=== PATIENT | male | born 1950 ===

== ENCOUNTER 2016-07-04 11:22 | Day surgery (SDC) | payer OTHER ==
[~2016-07-04] VITALS: Ht 170.2 cm; Wt 122.0 kg
[~2016-07-04 11:22] MED LIST: GABAPENTIN300 MG PO; LISINOPRIL20 MG PO; LOVASTATIN40 MG PO; METFORMIN HCL500 MG PO; TRAZODONE HCL50 MG PO
--- NOTE | 2016-07-04 13:53 | Provider's Discharge Care Plan ---
Problem, Goal, Plan Problem List 1. S/P colonoscopy Goals: Screening Instructions: Follow up as needed, Take meds as directed, high fiber diet
--- NOTE | 2016-07-04 13:53 | Provider's Discharge Care Plan ---
Problem, Goal, Plan Problem List 1. S/P colonoscopy Goals: Screening Instructions: Follow up as needed, Take meds as directed, high fiber diet
--- NOTE | 2016-07-04 13:57 | Operative Report ---
Operative Report Date of Surgery: 07/04/16 Preoperate Diagnosis: screening colonoscopy Postoperative Diagnosis: sigmoid diverticulosis Surgeon: Eduardo Lau MD [employer] Surgeon: none Procedure Performed: Screening colonoscopy Anesthesia: T DEZ Indications: 65-year-old male asymptomatic scheduled for screening colonoscopy. No family history of Crohn disease, ulcerative colitis, or colon cancer. FINDINGS: Normal appearing cecum, ascending colon, transverse colon, descending colon. Patient noted scattered diverticulosis of the sigmoid. Normal rectal vault Surgical Technique: Patient was brought to the operating room. Patient was placed in the left lateral decubitus position. Patient was administered TIVA by anesthesia. Once anesthesia had taken effect digital rectal examination was performed. No masses or stenosis was appreciated. This was then followed by the passage of a fiberoptic video flexible Olympus colonoscope. The scope was then passed without difficulty and the cecum was visualized. The cecum was identified by anatomical landmarks and anterior abdominal wall ballottement. On withdrawing the scope the aforementioned findings were noted. The scope was then retroflexed and a good view of the rectal wall obtained. The scope was then completely withdrawn. Patient tolerated procedure well. Patient was transferred to the recovery room in stable condition. There were no intraoperative or anesthetic complications.
[2016-07-04 14:56] VITALS: BP 139/89
== END 2016-07-04 15:05 | disposition home or self-care (01) ==
LOC: OR SRH 11:22 → SCU SRH 11:25 → OR SRH 12:00
PROVIDERS: Specialist
PROC: 0DJD8ZZ Inspection of Lower Intestinal Tract, Via Natural or Artificial Opening Endoscopic (ICD-10-PCS; principal; 2016-07-04 13:15)
DX: Z12.11 Encounter for screening for malignant neoplasm of colon (principal); K57.30 Diverticulosis of large intestine without perforation or abscess without bleeding; E11.9 Type 2 diabetes mellitus without complications; Z79.84 Long term (current) use of oral hypoglycemic drugs; I10 Essential (primary) hypertension
CPT/HCPCS: 29229; 29240; 50004; 60001; 83526